=== PATIENT | male | born 1980 | race African-American/Black ===

== ENCOUNTER 2019-07-20 13:10 | Emergency (ER) | payer SELFPAY ==
[~2019-07-20] VITALS: Ht 175.3 cm; Wt 81.6 kg
[2019-07-20 13:31] VITALS: BP 137/82
--- NOTE | 2019-07-20 13:54 | PHYS DOC ---
Past Medical History Past Medical History: No Pertinent History Past Surgical History: No Surgical History Additional Information: 4 cigars daily Alcohol Use: None Drug Use: None Adult General Chief Complaint Chief Complaint: DENTAL PROBLEM HPI HPI Patient is a 38 year old male with history of smoking who presents to the ED today complaining of a lesion on his left upper lip that he has had for 6 months. Patient denies any drainage from the lesion. He states occasionally the lesion is painful. Review of Systems Review of Systems Constitutional: Denies fever or chills [] Eyes: Denies change in visual acuity, redness, or eye pain [] HENT: Denies nasal congestion or sore throat [] Respiratory: Denies cough or shortness of breath [] Cardiovascular: No additional information not addressed in HPI [] GI: Denies abdominal pain, nausea, vomiting, bloody stools or diarrhea [] : Denies dysuria or hematuria [] Musculoskeletal: Denies back pain or joint pain [] Integument: Reports upper lip lesion Neurologic: Denies headache, focal weakness or sensory changes [] All other systems were reviewed and found to be within normal limits, except as documented in this note. Physical Exam Physical Exam Constitutional: Well developed, well nourished, no acute distress, non-toxic appearance. [] HENT: Normocephalic, atraumatic, bilateral external ears normal, oropharynx moist, no oral exudates, nose normal. [] Eyes: PERRLA, EOMI, conjunctiva normal, no discharge. [] Neck: Normal range of motion, no tenderness, supple, no stridor. [] Cardiovascular:Heart rate regular rhythm, no murmur [] Lungs & Thorax: Bilateral breath sounds clear to auscultation [] Abdomen: Bowel sounds normal, soft, no tenderness, no masses, no pulsatile masses. [] Skin: Warm, dry, upper lip with a circular lesion with well demarcated borders. There is no drainage this lesion. There is no warmth Back: No tenderness, no CVA tenderness. [] Extremities: No tenderness, no cyanosis, no clubbing, ROM intact, no edema. [] Neurologic: Alert and oriented X 3, normal motor function, normal sensory function, no focal deficits noted. [] Psychologic: Affect normal, judgement normal, mood normal. [] Current Patient Data Vital Signs Vital Signs Date Time Temp Pulse Resp B/P (MAP) Pulse Ox O2 Delivery O2 Flow Rate FiO2 07/20/19 13:31 98.1 78 16 137/82 (100) 99 Room Air 98.1 EKG EKG [] Radiology/Procedures Radiology/Procedures [] Course & Med Decision Making Course & Med Decision Making Pertinent Labs and Imaging studies reviewed. (See chart for details) This is a 38-year-old male patient with history of smoking presented to the ED today with a lesion on the upper lip that he has had for the last 6 months. I recommended patient to follow up with the [facility] for biopsy. Encouraged to consider smoking cessation. Dragon Disclaimer Dragon Disclaimer This electronic medical record was generated, in whole or in part, using a voice recognition dictation system. Departure Departure Impression: Primary Impression: Lesion of lip Additional Impression: Smoking addiction Disposition: 01 HOME, SELF-CARE Condition: STABLE Referrals: NO PCP (PCP) GILBERT SWIFT MD follow up as soon as you can Patient Instructions: Smoking Cessation Additional Instructions: You have a lesion on your upper lip that needs to be followed up with your own primary care doctor or [facility] for biopsy as soon as you can. Consider smoking cessation. 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
== END 2019-07-20 14:26 | disposition home or self-care (01) ==
LOC: ER 13:10
DX: K13.0 Diseases of lips (principal); F17.210 Nicotine dependence, cigarettes, uncomplicated
CPT/HCPCS: 99281